=== PATIENT | male | born 1975 | race Caucasian/White ===

== ENCOUNTER 2021-03-06 20:34 | Emergency (ER) | payer OTHER | END 2021-03-06 22:18 | disposition left against medical advice (07) | LOC: ER1 20:34 | DX: Z53.21 Procedure and treatment not carried out due to patient leaving prior to being seen by health care provider (principal) ==

== ENCOUNTER 2021-03-07 04:13 | Emergency (ER) | payer OTHER ==
[~2021-03-07] VITALS: Ht 182.9 cm; Wt 90.7 kg
[2021-03-07 05:00] LABS: HEMOGLOBIN 15.5 gm/dl (14.0-17.5); RED BLOOD COUNT 4.51 M/UL (4.20-5.50); WHITE BLOOD COUNT 16.4 K/UL (4.5-11.0)
[2021-03-07 05:17] LABS: BUN/CREATININE RATIO 11 (0-10)
[2021-03-08] MEDS ORDERED: CLINDAMYCIN HC300 MG PO (16:57)
[2021-03-08] MEDS ORDERED: IBUPROFEN600 MG PO (19:40)
[2021-03-08] MEDS ORDERED: CLEOCIN HCL300 MG PO (19:40)
== END 2021-03-07 07:30 | disposition left against medical advice (07) ==
LOC: ER1 04:13 → CDU 05:56 → ER1 05:56 → CDU 07:30
PROVIDERS: Physician Assistant
DX: L03.011 Cellulitis of right finger (principal); E87.6 Hypokalemia; Z20.822 Contact with and (suspected) exposure to COVID-19; F17.210 Nicotine dependence, cigarettes, uncomplicated
CPT/HCPCS: 73201; 80053; 83605; 85025; 85652; 86140; 87040; 96365; 96366; 96368; 96375; 99285; J1885; J2543; J3370; J3480; J7030; J7070; Q9967; U0002

== ENCOUNTER 2021-03-08 15:33 | Emergency (ER) | payer OTHER ==
[2021-03-08] MEDS ORDERED: CLINDAMYCIN HC300 MG PO (16:57)
[2021-03-08 17:10] LABS: RED BLOOD COUNT 4.48 M/UL (4.20-5.50); WHITE BLOOD COUNT 12.9 K/UL (4.5-11.0)
[2021-03-08 17:41] LABS: BUN/CREATININE RATIO 17 (0-10)
[2021-03-08] MEDS ORDERED: IBUPROFEN600 MG PO (19:40)
[2021-03-08] MEDS ORDERED: CLEOCIN HCL300 MG PO (19:40)
== END 2021-03-08 19:40 | disposition left against medical advice (07) ==
LOC: ER1 15:33
PROVIDERS: Nurse Practitioner
DX: L03.011 Cellulitis of right finger (principal); F17.210 Nicotine dependence, cigarettes, uncomplicated
CPT/HCPCS: 80053; 83605; 85025; 85652; 86140; 87040; 96374; 99283; J3370

== ENCOUNTER 2021-03-14 11:14 | Inpatient (IN) | payer OTHER ==
[~2021-03-14] VITALS: Ht 188 cm; Wt 90.3 kg
[~2021-03-14 11:14] MED LIST: CLEOCIN HCL300 MG PO; CLINDAMYCIN HC300 MG PO; IBUPROFEN600 MG PO
[2021-03-14 13:24] LABS: HEMOGLOBIN 15.2 gm/dl (14.0-17.5); RED BLOOD COUNT 4.48 M/UL (4.20-5.50); WHITE BLOOD COUNT 8.4 K/UL (4.5-11.0)
[2021-03-14 13:43] LABS: BUN/CREATININE RATIO 14 (0-10)
[2021-03-14] MEDS ORDERED: ROBAXIN 750 MG750 MG PO (16:07)
[2021-03-14] MEDS ORDERED: IBUPROFEN800 MG PO (17:00)
[2021-03-14] MEDS ORDERED: OXCARBAZEPINE300 MG PO (17:01)
[2021-03-14] MEDS ORDERED: PRILOSEC OTC20 MG PO (17:02)
[2021-03-15 04:29] LABS: RED BLOOD COUNT 4.44 M/UL (4.20-5.50); WHITE BLOOD COUNT 9.2 K/UL (4.5-11.0)
[2021-03-15 05:10] LABS: BUN/CREATININE RATIO 15 (0-10)
[2021-03-16 05:39] LABS: HEMOGLOBIN 15.9 gm/dl (14.0-17.5); RED BLOOD COUNT 4.68 M/UL (4.20-5.50); WHITE BLOOD COUNT 8.9 K/UL (4.5-11.0)
[2021-03-16 06:12] LABS: BUN/CREATININE RATIO 16 (0-10)
[2021-03-17 04:21] LABS: HEMOGLOBIN 15.9 gm/dl (14.0-17.5); RED BLOOD COUNT 4.67 M/UL (4.20-5.50)
[2021-03-17 04:22] LABS: WHITE BLOOD COUNT 19.7 K/UL (4.5-11.0)
[2021-03-17 04:34] LABS: BUN/CREATININE RATIO 17 (0-10)
[2021-03-17] MEDS ORDERED: BACTRIM DS TAB1 EACH PO (14:15)
[2021-03-17] MEDS ORDERED: AMOX TR-K CLV1 EAC4 PO (14:15)
[2021-03-18 05:49] LABS: HEMOGLOBIN 16.2 gm/dl (14.0-17.5); RED BLOOD COUNT 4.78 M/UL (4.20-5.50)
[2021-03-18 05:53] LABS: WHITE BLOOD COUNT 12.3 K/UL (4.5-11.0)
--- NOTE | 2021-03-18 15:07 | NUR ---
REAPPLIED DRSG TO RIGHT HAND. PT AND PT GF HAD REMOVED DRESSING AND WERE TOUCHING SUTURES WITH BARE HANDS. I IMMEDIATELY STOPPED THEM, EDUCATED THEM ON RISKS OF DOING SUCH AND REAPPLIED ADAPTIC, NONADHESICE, KERLEX AND JEFRY. PT HAS BEEN OUTSIDE MULTIPLE TIMES TODAY FOR LONG PERIODS OF TIME. PT HAS ALSO BEEN TAMPERING WITH IV PUMP AND IV LINES TO THE POINT OF HAVING TO HAVE A NEW IV EVERYTIME HE RETURNS FROM OUTSIDE DUE TO THEM BEING OUT OF POSITION OR CLOGGED. PT AND PT GF ADMITTED TO PUSHING BUTTONS ON PUMP. THEY WERE EDUCATED ON DANGERS OF DOING SO AND I FLIPPED THE SWITCH ON THE BACK OF THE PUMP TO LOCK IT. [facility]
== END 2021-03-18 15:45 | disposition left against medical advice (07) | DRG 513 ==
LOC: ER1 11:14 → MED SURG 4 15:24 → CDU 15:24 → MED SURG 4 18:11
PROVIDERS: Orthopaedic Surgery; Physician Assistant; Physician Assistant Medical; ADMIT Internal Medicine
PROC: 0JBJ0ZZ Excision of Right Hand Subcutaneous Tissue and Fascia, Open Approach (ICD-10-PCS; 2021-03-16)
PROC: 0LN70ZZ Release Right Hand Tendon, Open Approach (ICD-10-PCS; principal; 2021-03-16 16:15)
DX: M65.841 Other synovitis and tenosynovitis, right hand (principal); N17.9 Acute kidney failure, unspecified; I96 Gangrene, not elsewhere classified; L76.22 Postprocedural hemorrhage of skin and subcutaneous tissue following other procedure; L03.011 Cellulitis of right finger; Z20.822 Contact with and (suspected) exposure to COVID-19; F17.210 Nicotine dependence, cigarettes, uncomplicated; Z96.698 Presence of other orthopedic joint implants; R03.0 Elevated blood-pressure reading, without diagnosis of hypertension; Y83.8 Other surgical procedures as the cause of abnormal reaction of the patient, or of later complication, without mention of misadventure at the time of the procedure; E86.1 Hypovolemia; T39.8X5A Adverse effect of other nonopioid analgesics and antipyretics, not elsewhere classified, initial encounter; Z86.14 Personal history of Methicillin resistant Staphylococcus aureus infection; Z84.89 Family history of other specified conditions; Z91.14 Patient's other noncompliance with medication regimen
CPT/HCPCS: 36415; 80048; 80053; 80202; 83605; 85025; 85027; 85652; 86140; 87040; 87070; 87205; 99284; J0171; J1100; J1650; J1885; J2001; J2185; J2250; J2405; J2543; J2704; J2795; J3010; J3370; J7070; J7120; U0002

== ENCOUNTER → 2021-03-20 | Outpatient (CLI) | payer OTHER ==
[~2021-03-20] MED LIST changes: +AMOX TR-K CLV1 EAC4 PO; +BACTRIM DS TAB1 EACH PO; +IBUPROFEN800 MG PO; +OXCARBAZEPINE300 MG PO; +PRILOSEC OTC20 MG PO; +ROBAXIN 750 MG750 MG PO
[2021-03-20 11:01] LABS: HEMOGLOBIN 16.3 gm/dl (14.0-17.5); RED BLOOD COUNT 4.82 M/UL (4.20-5.50); WHITE BLOOD COUNT 11.7 K/UL (4.5-11.0)
[2021-03-20 11:21] LABS: BUN/CREATININE RATIO 13 (0-10)
== END ==
LOC: LAB 09:59
PROVIDERS: Internal Medicine
DX: N17.9 Acute kidney failure, unspecified (principal); L03.019 Cellulitis of unspecified finger
CPT/HCPCS: 36415; 80048; 85027; 85652; 86140